=== PATIENT | female | born 1980 | race African-American/Black ===

== ENCOUNTER 2024-12-12 10:07 | Emergency (ER) | payer SELFPAY | END 2024-12-12 10:37 | disposition home or self-care (01) | LOC: NAV ERS 10:07 | DX: I10 Essential (primary) hypertension (principal); Z76.0 Encounter for issue of repeat prescription; F17.210 Nicotine dependence, cigarettes, uncomplicated; Z79.899 Other long term (current) drug therapy | CPT/HCPCS: 99281 ==